=== PATIENT | female | born 1970 | race African-American/Black ===

== ENCOUNTER 2016-08-17 21:14 | Emergency (ER) | payer OTHER ==
[~2016-08-17] VITALS: Ht 165.1 cm; Wt 77.1 kg
[~2016-08-17 21:14] MED LIST: CELEXA 20 MG TA20 M1 PO; CIPROFLOXACIN500 M1 PO; CLONAZEPAM 1 MG1 M1 PO; CYMBALTA30 MG PO; FLAGYL500 MG PO; FLEXERIL; FLEXERIL PO; LIPITOR20 MG PO; MEDROLDOSEPACK; NABUMETONE 500500 M1; NORCO 5-325 TA1 EACH PO; PEPCID20 MG PO; PERCOCET 5-3251 EACH; TOPROL XL25 MG PO; TRAMADOL 50 MG50 MG PO; VALIUM5 MG; VENTOLIN HFA INH8 GM IH; VENTOLIN17 GM; VENTOLIN17 GM INH; ZOFRAN ODT4 MG PO; ZPAK PO
[2016-08-17] MEDS ORDERED: TRAMADOL 50 MG50 MG PO (23:28)
[2016-08-17] MEDS ORDERED: LEVAQUIN 750 M750 MG PO (23:31)
[2016-08-17 23:59] VITALS: BP 140/80
[2016-08-18] MEDS ORDERED: DIFLUCAN200 MG PO (00:05)
== END 2016-08-18 00:16 | disposition home or self-care (01) ==
LOC: ER 21:14
DX: S91.312A Laceration without foreign body, left foot, initial encounter (principal); F17.210 Nicotine dependence, cigarettes, uncomplicated; Z90.89 Acquired absence of other organs; Z88.8 Allergy status to other drugs, medicaments and biological substances; Z88.5 Allergy status to narcotic agent; W10.9XXA Fall (on) (from) unspecified stairs and steps, initial encounter; Y93.89 Activity, other specified; Y92.89 Other specified places as the place of occurrence of the external cause; Y99.9 Unspecified external cause status

== ENCOUNTER 2018-01-10 23:53 | Emergency (ER) | payer OTHER ==
[~2018-01-10] VITALS: Ht 165.1 cm; Wt 111.1 kg
--- NOTE | ~2018-01-10 | EKG ---
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1970 Requested By: Onel Escobedo Order Number: [id number] MD: Quoc Alexander Measurements Intervals [place] Rate: 124 P: 48 WA: 138 QRS: 62 QRSD: 85 T: -28 QT: 318 QTc: 457 Interpretive Statements Sinus tachycardia Borderline T abnormalities, inferior leads Compared to ECG 04/10/2014 11:06:58 T-wave abnormality now present Electronically Signed On 01-12-2018 8:35:11 CDT by Quoc Alexander [email or web address] <ELECTRONICALLY SIGNED> By: Quoc Alexander MD, [facility] 01/12/18 0835 D: 105 Quoc Alexander MD, FACC /EPI
[~2018-01-10 23:53] MED LIST changes: +DIFLUCAN200 MG PO; +LEVAQUIN 750 M750 MG PO
[2018-01-10] MEDS ORDERED: COZAAR 25 MG TA25 M1 PO (23:57)
[2018-01-10] MEDS ORDERED: HYDROCHLOROTH12.5 M1 PO (23:57)
[2018-01-10] MEDS ORDERED: WELLBUTRIN 100100 MG PO (23:59)
[2018-01-10] MEDS ORDERED: ZYRTEC10 M5 PO (23:59)
[2018-01-11] MEDS ORDERED: ASPIR 8181 MG PO
[2018-01-11] MEDS ORDERED: PROZAC20 MG PO (00:01)
[2018-01-11] MEDS ORDERED: ATIVAN0.5 MG PO (00:02)
[2018-01-11] MEDS ORDERED: TRAZODONE HCL100 MG PO (00:02)
[2018-01-11 00:32] LABS: ABSOLUTE NEUTROPHILS 2.5 thou/uL (1.4-8.2); BASOPHILS 0.9 % (0.0-2.0); EOSINOPHILS 3.9 % (0.0-3.0); HEMATOCRIT 41.9 % (37.0-47.0); HEMOGLOBIN 14.3 gm/dL (12.0-15.0); LYMPHOCYTES 45.5 % (24.0-44.0); MCHC 34.1 g/dL (28.0-37.0); MONOCYTES 9.2 % (1.0-8.0); PLATELET COUNT 285 thou/uL (150-400); POLYS 40.5 % (36.0-66.0); RBC 4.94 mil/uL (4.20-5.00); RDW 14.1 % (10.5-14.5); WBC 6.1 thou/uL (4.0-11.0)
[2018-01-11 00:41] LABS: ANION GAP 10 mmol/L (7-16); BUN 13 mg/dL (7-18); CALCIUM 9.4 mg/dL (8.5-10.1); CHLORIDE 102 mmol/L (98-107); CO2 23 mmol/L (21-32); GLUCOSE 90 mg/dL (74-106); POTASSIUM 3.8 mmol/L (3.5-5.1); SODIUM 135 mmol/L (136-145)
[2018-01-11 00:49] LABS: ALBUMIN 3.8 g/dL (3.4-5.0); SGOT 19 U/L (15-37); SGPT 26 U/L (30-65); TOTAL BILIRUBIN 0.8 mg/dL (<0.1-1.0); TOTAL PROTEIN 8.3 g/dL (6.4-8.2); TROPONIN-I <0.06 ng/mL (<0.06)
[2018-01-11 02:51] VITALS: BP 128/79
== END 2018-01-11 02:59 | disposition home or self-care (01) ==
LOC: ER 23:53
PROVIDERS: Emergency Medicine
DX: R07.1 Chest pain on breathing (principal); R00.0 Tachycardia, unspecified; F17.210 Nicotine dependence, cigarettes, uncomplicated; E78.00 Pure hypercholesterolemia, unspecified; I10 Essential (primary) hypertension; E78.5 Hyperlipidemia, unspecified; Z88.8 Allergy status to other drugs, medicaments and biological substances; Z88.5 Allergy status to narcotic agent; Z98.890 Other specified postprocedural states; Z90.49 Acquired absence of other specified parts of digestive tract

== ENCOUNTER 2019-11-03 23:32 | Emergency (ER) | payer OTHER ==
[~2019-11-03] VITALS: Ht 165.1 cm; Wt 135.6 kg
[~2019-11-03 23:32] MED LIST changes: +ASPIR 8181 MG PO; +ATIVAN0.5 MG PO; +COZAAR 25 MG TA25 M1 PO; +HYDROCHLOROTH12.5 M1 PO; +PROZAC20 MG PO; +TRAZODONE HCL100 MG PO; +WELLBUTRIN 100100 MG PO; +ZYRTEC10 M5 PO
[2019-11-04 00:23] VITALS: BP 115/67
== END 2019-11-04 00:23 | disposition home or self-care (01) ==
LOC: ER 23:32
DX: U07.1 COVID-19 (principal); F17.210 Nicotine dependence, cigarettes, uncomplicated; Z98.51 Tubal ligation status; Z90.49 Acquired absence of other specified parts of digestive tract; Z98.890 Other specified postprocedural states; Z79.899 Other long term (current) drug therapy; Z79.82 Long term (current) use of aspirin; Z88.6 Allergy status to analgesic agent; Z88.5 Allergy status to narcotic agent